=== PATIENT | male | born 2000 | race Caucasian/White ===

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

== ENCOUNTER 2022-03-06 19:56 | Outpatient (CLI) | payer OTHER, MEDICAID | END 2022-03-06 19:57 | disposition EMS.NT | LOC: EMS 19:56 | DX: R07.89 Other chest pain (principal); Y08.02XA Assault by strike by baseball bat, initial encounter ==